=== PATIENT | male | born 1970 ===

== ENCOUNTER 2018-05-03 08:05 | Emergency (ER) | payer OTHER, SELFPAY ==
[2018-05-03 08:09] VITALS: O2SAT 98; BMI 28.0
--- NOTE | 2018-05-03 09:10 | ED PDOC ---
HPI: Abdomen Time Seen by Provider: 05/03/18 08:45 Chief Complaint (Nursing): Abdominal Pain Chief Complaint (Provider): Abdominal Pain History Per: Patient History/Exam Limitations: no limitations Onset/Duration Of Symptoms: Days (14) Current Symptoms Are (Timing): Constant Location Of Pain/Discomfort: Epigastric Associated Symptoms: Diarrhea. denies: Nausea, Vomiting Additional Complaint(s): 48 years old male presents to ER for evaluation of constant epigastric abdominal pain onset 2 weeks. Patient reports similar symptoms before, has been seen by a doctor and was diagnosed with gastritis. He denies nausea, vomiting, diarrhea, chest pain, SOB. PMD: [facility] Past Medical History Reviewed: Historical Data, Nursing Documentation, Vital Signs Vital Signs: Last Vital Signs Temp 98 F 05/03/18 08:08 Pulse 59 L 05/03/18 08:08 Resp 17 05/03/18 08:08 BP 123/72 05/03/18 08:08 Pulse Ox 98 05/03/18 08:08 - Medical History PMH: Gastritis (2014) - Surgical History Surgical History: Hernia Repair - Family History Family History: States: Unknown Family Hx - Social History Current smoker - smoking cessation education provided: No Alcohol: None Drugs: Denies - Immunization History Hx Tetanus Toxoid Vaccination: No Hx Influenza Vaccination: No Hx Pneumococcal Vaccination: No - Home Medications Home Medications: Ambulatory Orders Medication Instructions Recorded Famotidine [Pepcid] 20 mg PO BID PRN #10 tab 10/09/16 Famotidine [Pepcid] 20 mg PO BID #20 tab 05/03/18 - Allergies Allergies/Adverse Reactions: Allergies Allergy/AdvReac Type Severity Reaction Status Date / Time No Known Allergies Allergy Verified 10/09/16 08:54 Review of Systems ROS Statement: Except As Marked, All Systems Reviewed And Found Negative Gastrointestinal: Positive for: Abdominal Pain (Epigastric). Negative for: Nausea, Vomiting, Diarrhea Physical Exam - Reviewed Nursing Documentation Reviewed: Yes Vital Signs Reviewed: Yes - Physical Exam Appears: Positive for: Non-toxic, No Acute Distress Skin: Positive for: Normal Color, Warm, Dry Eye Exam: Positive for: Normal appearance, EOMI, PERRL Cardiovascular/Chest: Positive for: Regular Rate, Rhythm. Negative for: Murmur Respiratory: Positive for: Normal Breath Sounds. Negative for: Rales, Rhonchi, Wheezing Gastrointestinal/Abdominal: Positive for: Bowel Sounds, Soft, Tenderness (Mild epigastric). Negative for: Guarding, Rebound Back: Positive for: Normal Inspection Neurologic/Psych: Positive for: Alert, Oriented (x3) - Laboratory Results Result Diagrams: 05/03/18 10:20 05/03/18 10:20 - ECG Interpretation Of ECG: Sinus franchesca @ 52, no ST-T changes. O2 Sat by Pulse Oximetry: 98 (RA) Pulse Ox Interpretation: Normal Medical Decision Making Medical Decision Making: Time: 932 Initial Plan: --EKG --Labs --Chest c-ray --Pepcid 20 mg IVP --Abdomen US 1100 Abdomen US FINDINGS: LIVER: Measures 14.0 cm in length. Normal echogenicity of the liver parenchyma. No mass. No intrahepatic bile duct dilatation. GALLBLADDER: Unremarkable. No gallstones. COMMON BILE DUCT: Measures 3.0 mm. No stones. No dilatation. PANCREAS: The pancreas is completely obscured by overlying bowel gas. RIGHT KIDNEY: Measures 10.0 cm in length. Normal echogenicity. No calculus, mass, or hydronephrosis. AORTA: No aneurysmal dilatation. IVC: Limited visualization of the inferior vena cava is appreciated due to overlying bowel gas. OTHER FINDINGS: None . IMPRESSION: Overlying bowel gas obscures imaging of the pancreas and inferior vena cava with remainder unremarkable. No suspicious findings are demonstrated on limited right upper quadrant ultrasonography. Scribe Attestation: Documented by Cyn Abdi, acting as a scribe for Shira Patiño MD. Provider Scribe Attestation: All medical record entries made by the Scribe were at my direction and person ally dictated by me. I have reviewed the chart and agree that the record accurately reflects my personal performance of the history, physical exam, medical decision making, and the department course for this patient. I have also personally directed, reviewed, and agree with the discharge instructions and disposition. Disposition - Clinical Impression Clinical Impression: Gastritis - Disposition Referrals: Wes Dunn MD [Staff Provider] - [facility] [Outside] Disposition: Routine/Home Disposition Time: 12:08 Condition: STABLE Prescriptions: Famotidine [Pepcid] 20 mg PO BID #20 tab Instructions: Gastritis Forms: [facility] (Mohawk) Print Language: BELIZEAN
[2018-05-03 10:38] LABS: BASO % 0.7 % (0.0-2.0); EOS # 0.1 K/uL (0.0-0.7); EOS % 2.5 % (0.0-4.0); HEMOGLOBIN 14.9 g/dL (12.0-18.0); LYMPH # 1.7 K/uL (1.0-4.3); LYMPH % 30.3 % (20.0-40.0); MEAN CELL VOLUME 82.5 fl (80.0-94.0); MEAN CORPUSCULAR HGB CONC 33.9 g/dL (33.0-37.0); MEAN PLATELET VOLUME 8.8 fl (7.2-11.7); MONO # 0.5 K/uL (0.0-0.8); MONO % 9.6 % (0.0-10.0); NEUT # 3.2 K/uL (1.8-7.0); NEUT % 56.9 % (50.0-75.0); NRBC % 0.1 % (0.0-0.0); RBC 5.3 Mil/uL (4.40-5.90); RED CELL DISTRIBUTION WIDTH 14.7 % (11.5-14.5); WHITE BLOOD COUNT 5.7 K/uL (4.8-10.8)
[2018-05-03 10:41] LABS: PROTHROMBIN TIME 10.8 Seconds (9.8-13.1)
[2018-05-03 10:44] LABS: PARTIAL THROMBOPLASTIN TIME 36.4 Seconds (25.6-37.1)
[2018-05-03 11:02] LABS: ALB/GLOB RATIO 1.2 (1.0-2.1); ALBUMIN 4.5 g/dL (3.5-5.0); ALT/SGPT 48 U/L (21-72); AST/SGOT 41 U/L (17-59); BLOOD UREA NITROGEN 18 mg/dl (9-20); CALCIUM 9.4 mg/dL (8.4-10.2); GFR NON-AFRICAN AMERICAN > 60; LIPASE 41 U/L (23-300)
--- NOTE | 2018-05-03 11:02 | US ---
Date of service: 05/03/2018 HISTORY: Epigastric pain COMPARISON: None. TECHNIQUE: Sonographic evaluation of the right upper quadrant of the abdomen. FINDINGS: LIVER: Measures 14.0 cm in length. Normal echogenicity of the liver parenchyma. No mass. No intrahepatic bile duct dilatation. GALLBLADDER: Unremarkable. No gallstones. COMMON BILE DUCT: Measures 3.0 mm. No stones. No dilatation. PANCREAS: The pancreas is completely obscured by overlying bowel gas. RIGHT KIDNEY: Measures 10.0 cm in length. Normal echogenicity. No calculus, mass, or hydronephrosis. AORTA: No aneurysmal dilatation. IVC: Limited visualization of the inferior vena cava is appreciated due to overlying bowel gas. OTHER FINDINGS: None . IMPRESSION: Overlying bowel gas obscures imaging of the pancreas and inferior vena cava with remainder unremarkable. No suspicious findings are demonstrated on limited right upper quadrant ultrasonography.
[2018-05-03 11:59] VITALS: RESP 19
--- NOTE | 2018-05-03 12:50 | RAD ---
Date of service: 05/03/2018 HISTORY: Epigastric pain COMPARISON: No prior. TECHNIQUE: Chest PA and lateral FINDINGS: LUNGS: No active pulmonary disease. PLEURA: No significant pleural effusion identified. No pneumothorax apparent. CARDIOVASCULAR: No radiographic findings to suggest acute or significant cardiovascular disease. OSSEOUS STRUCTURES: No significant abnormalities. VISUALIZED UPPER ABDOMEN: Normal. OTHER FINDINGS: None. IMPRESSION: No active disease.
--- NOTE | 2018-05-03 13:08 | CARD ---
APPROVED REPORT Date of service: 05/03/2018 EKG Measurement Heart [id number] <Conclusion> Sinus bradycardia Otherwise normal ECG
[2018-05-03 13:27] VITALS: BP 128/78; PULSE 78; TEMP 97.6
== END 2018-05-03 13:27 | disposition home or self-care (01) ==
LOC: H.ER 08:05
DX: K29.70 Gastritis, unspecified, without bleeding (principal); R10.13 Epigastric pain

== ENCOUNTER 2018-10-09 10:01 | Emergency (ER) | payer OTHER ==
[2018-10-09 10:03] VITALS: BMI 25.4
[2018-10-09 10:05] VITALS: TEMP 98; O2SAT 97
[2018-10-09] MEDS ORDERED: Sodium Chloride 0.9% 1,000 ML IV STA (10:36)
--- NOTE | 2018-10-09 10:38 | ED PDOC ---
HPI: Abdomen Time Seen by Provider: 10/09/18 10:10 Chief Complaint (Nursing): Abdominal Pain Chief Complaint (Provider): Abdominal Pain History Per: Patient History/Exam Limitations: no limitations Onset/Duration Of Symptoms: Days (x1) Current Symptoms Are (Timing): Still Present Additional Complaint(s): 48 y/o male with no significant PMHx presents to the ED for evaluation of abdominal pain associated with vomiting, onset one day ago. Patient reports pain is located in the epigastric region and associated with more than 10 episodes of vomiting yesterday. Patient notes his children are sick at home with the same symptoms. Otherwise, patient denies diarrhea and fever PMD: none provided Past Medical History Reviewed: Historical Data, Nursing Documentation, Vital Signs Vital Signs: Last Vital Signs Temp 98 F 10/09/18 10:04 Pulse 73 10/09/18 10:04 Resp 18 10/09/18 10:04 BP 100/62 10/09/18 10:04 Pulse Ox 97 10/09/18 10:04 - Medical History PMH: Gastritis - Surgical History Surgical History: Hernia Repair - Family History Family History: States: Unknown Family Hx - Immunization History Hx Tetanus Toxoid Vaccination: No Hx Influenza Vaccination: No Hx Pneumococcal Vaccination: No - Home Medications Home Medications: Ambulatory Orders Medication Instructions Recorded Famotidine [Pepcid] 20 mg PO BID PRN #10 tab 10/09/16 Famotidine [Pepcid] 20 mg PO BID #20 tab 05/03/18 Famotidine [Pepcid] 20 mg PO BID #20 tab 10/09/18 Nitrofurantoin Macrocrystals 100 mg PO BID #9 cap 10/09/18 [Macrobid] Ondansetron ODT [Zofran ODT] 4 mg PO Q8H PRN #20 odt 10/09/18 - Allergies Allergies/Adverse Reactions: Allergies Allergy/AdvReac Type Severity Reaction Status Date / Time No Known Allergies Allergy Verified 10/09/16 08:54 Review of Systems ROS Statement: Except As Marked, All Systems Reviewed And Found Negative Constitutional: Negative for: Fever Gastrointestinal: Positive for: Vomiting, Abdominal Pain. Negative for: Diarrhea Physical Exam - Reviewed Nursing Documentation Reviewed: Yes Vital Signs Reviewed: Yes - Physical Exam Appears: Positive for: No Acute Distress Head Exam: Positive for: ATRAUMATIC, NORMOCEPHALIC Skin: Positive for: Normal Color, Warm, Dry Eye Exam: Positive for: Normal appearance, EOMI, PERRL Neck: Positive for: Normal, Painless ROM Cardiovascular/Chest: Positive for: Regular Rate, Rhythm. Negative for: Murmur Respiratory: Positive for: Normal Breath Sounds. Negative for: Respiratory Distress Gastrointestinal/Abdominal: Positive for: Soft, Tenderness (epigastric tenderness) Extremity: Positive for: Normal ROM. Negative for: Deformity Neurological/Psych: Positive for: Awake, Alert, Oriented. Negative for: Motor/Sensory Deficits - Laboratory Results Result Diagrams: 10/09/18 10:45 10/09/18 10:45 - ECG Interpretation Of ECG: NSR @ 67, no ST-T changes. O2 Sat by Pulse Oximetry: 97 (RA) Pulse Ox Interpretation: Normal Medical Decision Making Medical Decision Making: Time: 1036 Impression: Abdominal Pain Plan: -- EKG -- CMP -- Lipase -- ED Urine Dipstick -- CBC with Differentials -- Sodium Chloride IV 1000 mls/hr -- Pepcid 20 mg IVP -- Zofran Inj 4 mg IVP -- Urinalysis Accession No. : [id number] Patient Name / ID : XAVIER LOREDO / [id number] Exam Date : 10/09/2018 15:16:07 ( Approved ) Study Comment : Sex / Age : M / 48Y Creator : Brian Mednez MD Dictator : Brian Mendez MD Occupational Safety And Health Manager : Delivery Helper : Brian Mendez MD Approver2 : Report Date : 10/09/2018 15:46:18 My Comment : Date of service: 10/09/2018 HISTORY: Epigastric pain COMPARISON: None. TECHNIQUE: Sonographic evaluation of the right upper quadrant of the abdomen. FINDINGS: LIVER: Measures 15.3 cm in length. Mild coarse echogenicity of the liver parenchyma. No focal liver mass or intrahepatic ductal dilatation. GALLBLADDER: Unremarkable. No gallstones. COMMON BILE DUCT: Measures 3 mm. No stones. No dilatation. PANCREAS: Head and body of the pancreas are normal in outline. Tail of the pancreas was obscured by bowel gas. RIGHT KIDNEY: Measures 9.7 cm in length. Normal echogenicity. No calculus, mass, or hydronephrosis. AORTA: Proximal portion of the aorta is normal in size. Distal portion was obscured by bowel gas. IVC: Unremarkable. OTHER FINDINGS: None . IMPRESSION: No ultrasound evidence of acute cholecystitis. No evidence of bile duct di latation or ascites. Please see above. Scribe Attestation: Documented by Yanick Casillas, acting as a scribe Isela Patiño MD. Provider Scribe Attestation: All medical record entries made by the Scribe were at my direction and personally dictated by me. I have reviewed the chart and agree that the record accurately reflects my personal performance of the history, physical exam, medical decision making, and the department course for this patient. I have also personally directed, reviewed, and agree with the discharge instructions and disposition. Disposition - Clinical Impression Clinical Impression: Gastritis, UTI (urinary tract infection) - Patient ED Disposition Is Patient to be Admitted: No - Disposition Referrals: [facility] [Outside] Disposition: Routine/Home Disposition Time: 16:26 Condition: IMPROVED Prescriptions: Famotidine [Pepcid] 20 mg PO BID #20 tab Nitrofurantoin Macrocrystals [Macrobid] 100 mg PO BID #9 cap Ondansetron ODT [Zofran ODT] 4 mg PO Q8H PRN #20 odt PRN Reason: Nausea/Vomiting Instructions: Urinary Tract Infections in Adults, Gastritis Forms: [employer] (Indonesian) Print Language: CAMBODIAN
[2018-10-09 11:31] LABS: BASO % 0.3 % (0.0-2.0); EOS # 0.1 K/uL (0.0-0.7); EOS % 0.7 % (0.0-4.0); HEMOGLOBIN 14.4 g/dL (12.0-18.0); LYMPH # 0.3 K/uL (1.0-4.3); LYMPH % 3.9 % (20.0-40.0); MEAN CELL VOLUME 80.6 fl (80.0-94.0); MEAN CORPUSCULAR HGB CONC 33.5 g/dL (33.0-37.0); MEAN PLATELET VOLUME 8.5 fl (7.2-11.7); MONO # 0.3 K/uL (0.0-0.8); NEUT # 7.4 K/uL (1.8-7.0); NEUT % 91.1 % (50.0-75.0); NRBC % 0.1 % (0.0-0.0); PLATELET COUNT 228 K/uL (130-400); RBC 5.34 Mil/uL (4.40-5.90); RED CELL DISTRIBUTION WIDTH 14.4 % (11.5-14.5); WHITE BLOOD COUNT 8.2 K/uL (4.8-10.8)
[2018-10-09 11:54] LABS: ALB/GLOB RATIO 1.3 (1.0-2.1); ALBUMIN 4.6 g/dL (3.5-5.0); ALT/SGPT 41 U/L (21-72); AST/SGOT 40 U/L (17-59); BLOOD UREA NITROGEN 21 mg/dl (9-20); CALCIUM 9.2 mg/dL (8.4-10.2); GFR NON-AFRICAN AMERICAN > 60; LIPASE 25 U/L (23-300)
[2018-10-09 12:06] LABS: SQUAMOUS EPITHIAL < 1 /hpf (0-5); URINE BACTERIA FEW (<OCC); URINE BILIRUBIN NEGATIVE (NEGATIVE); URINE BLOOD NEGATIVE (NEGATIVE); URINE CLARITY SLIGHTY-CLOUDY (Clear); URINE COLOR YELLOW (YELLOW); URINE GLUCOSE (UA) NEG (NEGATIVE); URINE LEUKOCYTE ESTERASE NEG Leu/uL (Negative); URINE PROTEIN NEGATIVE (NEGATIVE); URINE UROBILINOGEN 0.2-1.0 mg/dL (0.2-1.0)
[2018-10-09 12:35] LABS: BANDS 2 % (0-2); EOSINOPHIL 3 % (0-7); LYMPHOCYTE 3 % (20-50); MONOCYTE 4 % (0-10); NEUTROPHIL 88 % (42-75); PLATELET ESTIMATE NORMAL (NORMAL); TOTAL CELLS COUNTED 100
--- NOTE | 2018-10-09 15:50 | US ---
Date of service: 10/09/2018 HISTORY: Epigastric pain COMPARISON: None. TECHNIQUE: Sonographic evaluation of the right upper quadrant of the abdomen. FINDINGS: LIVER: Measures 15.3 cm in length. Mild coarse echogenicity of the liver parenchyma. No focal liver mass or intrahepatic ductal dilatation. GALLBLADDER: Unremarkable. No gallstones. COMMON BILE DUCT: Measures 3 mm. No stones. No dilatation. PANCREAS: Head and body of the pancreas are normal in outline. Tail of the pancreas was obscured by bowel gas. RIGHT KIDNEY: Measures 9.7 cm in length. Normal echogenicity. No calculus, mass, or hydronephrosis. AORTA: Proximal portion of the aorta is normal in size. Distal portion was obscured by bowel gas. IVC: Unremarkable. OTHER FINDINGS: None . IMPRESSION: No ultrasound evidence of acute cholecystitis. No evidence of bile duct dilatation or ascites. Please see above.
[2018-10-09 16:17] VITALS: BP 106/58; PULSE 75; RESP 16
--- NOTE | 2018-10-10 18:46 | CARD ---
APPROVED REPORT Date of service: 10/09/2018 EKG Measurement Heart [id number] <Conclusion> Normal sinus rhythm Normal ECG
== END 2018-10-09 16:50 | disposition home or self-care (01) ==
LOC: H.ER 10:01
DX: K29.70 Gastritis, unspecified, without bleeding (principal); N39.0 Urinary tract infection, site not specified
CPT/HCPCS: 76705; 80053; 81003; 83690; 85025; 93005; 96360; 96374; 99285; J2405; J7030